=== PATIENT | female | born 1980 | race Caucasian/White ===

== ENCOUNTER → 2019-08-05 | Outpatient (CLI) | payer OTHER | LOC: M.CT 15:40 | DX: R10.9 Unspecified abdominal pain (principal); R19.03 Right lower quadrant abdominal swelling, mass and lump; R19.01 Right upper quadrant abdominal swelling, mass and lump ==

== ENCOUNTER → 2019-08-06 | Outpatient (CLI) | payer OTHER | LOC: M.ULTRA 09:04 | DX: R19.03 Right lower quadrant abdominal swelling, mass and lump (principal) ==